=== PATIENT | female | born 2000 | race Caucasian/White ===

== ENCOUNTER → 2021-08-13 | Outpatient (CLI) | payer OTHER, SELFPAY ==
[2021-08-13 12:56] LABS: HEMATOCRIT 37.5 % (36.0-47.0); HEMOGLOBIN 12.9 g/dl (12.0-15.5); MEAN CORPUSCULAR HEMOGLOBIN 30.9 pg (27.0-33.0); MEAN CORPUSCULAR HGB CONC 34.4 g/dl (32.0-36.5); MEAN CORPUSCULAR VOLUME 89.9 fl (80.0-96.0); PLATELET COUNT, AUTOMATED 237 10^3/uL (150-450); RED BLOOD COUNT 4.17 10^6/uL (4.00-5.40); WHITE BLOOD COUNT 5.7 10^3/uL (4.0-10.0)
[2021-08-13 13:19] LABS: ALT/SGPT 27 U/L (12-78); BLOOD UREA NITROGEN 13 MG/DL (7-18); CALCIUM LEVEL 9.3 MG/DL (8.5-10.1); CARBON DIOXIDE LEVEL 26 MEQ/L (21-32); CHLORIDE LEVEL 110 MEQ/L (98-107); CREATININE FOR GFR 0.68 MG/DL (0.55-1.30); GLOMERULAR FILTRATION RATE > 60.0 (>60); GLUCOSE, FASTING 100 MG/DL (70-100); SODIUM LEVEL 140 MEQ/L (136-145)
[2021-08-13 13:20] LABS: ALBUMIN 3.9 GM/DL (3.2-5.2); BILIRUBIN,DIRECT < 0.1 MG/DL (0.0-0.2); BILIRUBIN,TOTAL 0.3 MG/DL (0.2-1.0); HCG, SERUM QUANTITATIVE 310 MIU/ML; TOTAL PROTEIN 7.2 GM/DL (6.4-8.2)
== END ==
LOC: M LAB 12:03
PROVIDERS: ATTEND Obstetrics & Gynecology
DX: O00.90 Unspecified ectopic pregnancy without intrauterine pregnancy (principal)

== ENCOUNTER → 2021-08-17 | Outpatient (CLI) | payer OTHER | LOC: M LAB 15:39 | PROVIDERS: ATTEND Obstetrics & Gynecology | DX: O02.81 Inappropriate change in quantitative human chorionic gonadotropin (hCG) in early pregnancy (principal) ==

== ENCOUNTER 2022-10-06 21:30 | Outpatient (CLI) | payer OTHER ==
[~2022-10-06] VITALS: Ht 162.6 cm; Wt 88.5 kg
[2022-10-06 21:47] VITALS: BP 138/80
[2022-10-06] MEDS ORDERED: PRENTAB9 PO (21:51)
[2022-10-06] MEDS ORDERED: HOME MED LIST COMPLETE! XX SCH (21:55)
[2022-10-07 00:18] VITALS: BP 145/80
== END 2022-10-07 00:30 | disposition home or self-care (01) ==
LOC: M LDO 21:30
PROVIDERS: ATTEND Obstetrics & Gynecology
DX: O47.1 False labor at or after 37 completed weeks of gestation (principal); Z3A.39 39 weeks gestation of pregnancy
CPT/HCPCS: 59025; G0378; G0463

== ENCOUNTER 2022-10-11 13:14 | Outpatient (CLI) | payer OTHER ==
[~2022-10-11] VITALS: Ht 175.3 cm; Wt 89.4 kg
[~2022-10-11 13:14] MED LIST: PRENTAB9 PO
[2022-10-11 13:36] VITALS: BP 170/82
[2022-10-11 13:40] VITALS: BP 155/73
[2022-10-11 13:58] VITALS: BP 124/70
[2022-10-11 15:28] VITALS: BP 124/68
[2022-10-11 16:58] VITALS: BP 115/55
[2022-10-12] MEDS ORDERED: ACET325C5 PO (19:49)
== END 2022-10-11 18:42 | disposition home or self-care (01) ==
LOC: M LDO 13:14
PROVIDERS: ATTEND Obstetrics & Gynecology
DX: O47.1 False labor at or after 37 completed weeks of gestation (principal); Z3A.39 39 weeks gestation of pregnancy; O36.8130 Decreased fetal movements, third trimester, not applicable or unspecified
CPT/HCPCS: 59025; G0463

== ENCOUNTER 2022-10-12 19:31 | Inpatient (IN) | payer OTHER ==
[2022-10-12] VITALS (18 sets, daily range): BP systolic 108–146; BP diastolic 56–87
[~2022-10-12] VITALS: Ht 162.6 cm; Wt 89.7 kg
[2022-10-12] MEDS ORDERED: ACET325C5 PO (19:49)
[2022-10-12 20:28] LABS: HEMATOCRIT 38.4 % (36.0-47.0); HEMOGLOBIN 12.6 g/dl (12.0-15.5); MEAN CORPUSCULAR HEMOGLOBIN 29.8 pg (27.0-33.0); MEAN CORPUSCULAR HGB CONC 32.8 g/dl (32.0-36.5); MEAN CORPUSCULAR VOLUME 90.8 fl (80.0-96.0); PLATELET COUNT, AUTOMATED 196 10^3/uL (150-450); RED BLOOD COUNT 4.23 10^6/uL (4.00-5.40)
[2022-10-12] MEDS ORDERED: LACTATED RINGER'S 1000 ML IV STA (20:39)
[2022-10-12] MEDS ORDERED: OXYTOCIN DRIP 30 UNITS in IV 1 EA IV PRN ×4 (20:40)
[2022-10-12] MEDS ORDERED: LIDOCAINE 1% MDV 20ML VIAL INFIL PRN (20:40)
[2022-10-12] MEDS ORDERED: CARBOPROST TROMETHAMINE 250 MCG/ML AMP IM PRN (20:40)
[2022-10-12] MEDS ORDERED: HOME MED LIST COMPLETE! XX SCH (20:40)
[2022-10-12] MEDS ORDERED: TRANEXAMIC ACID INJection 1,000 MG in NS 100 ML IV PRN (20:40)
[2022-10-12] MEDS ORDERED: METHYLERGONOVINE MALEATE 0.2 MG/ML VIAL (J2210) IM PRN (20:40)
[2022-10-12] MEDS ORDERED: LR 500 ML IV PRN (21:25)
[2022-10-12] MEDS ORDERED: NALOXONE INJ 0.4MG/1ML VIAL IV PRN (21:25)
[2022-10-12] MEDS ORDERED: ONDANSETRON 4MG 2ML VIAL IV PRN (21:25)
[2022-10-12] MEDS ORDERED: diphenhydrAMINE 50MG/ML VIAL IV PRN (21:25)
[2022-10-12] MEDS ORDERED: EPIDURAL/PCA KEYS XX PRN (21:25)
[2022-10-12] MEDS: LR 1,000 ML IV SCH (21:31)
[2022-10-12] MEDS: FENTANYL/ROPIVACAINE/NACL BAG 100 ML EPIDURAL SCH (22:00)
[2022-10-13] VITALS (32 sets, daily range): BP systolic 92–164; BP diastolic 51–86
[2022-10-13] MEDS: LR 1,000 ML IV SCH ×3 (00:38→20:40)
[2022-10-13] MEDS: ePHEDrine SULFATE 25 MG/5 ML(5MG/ML) SYRINGE IVP PRN ×3 (01:28→02:40)
[2022-10-13] MEDS ORDERED: ePHEDrine SULFATE 25 MG/5 ML(5MG/ML) SYRINGE IVP PRN (03:35)
[2022-10-13] MEDS ORDERED: LR 500 ML IV PRN (03:35)
[2022-10-13] MEDS: FENTANYL/ROPIVACAINE/NACL BAG 100 ML EPIDURAL SCH (04:56)
[2022-10-13] MEDS ORDERED: METHYLERGONOVINE MALEATE 0.2 MG TAB PO PRN (08:50)
[2022-10-13] MEDS ORDERED: DOCUSATE SODIUM 100MG CAPSULE PO PRN (08:50)
[2022-10-13] MEDS ORDERED: ACETAMINOPHEN TAB 650MG DOSE (2X325MG) PO PRN (08:50)
[2022-10-13] MEDS ORDERED: DIBUCAINE 1% OINTMENT 30GM TOP PRN (08:50)
[2022-10-13] MEDS ORDERED: RHOGAM 300 MCG (1500 IU) INJ (J2790) IM SCH (08:50)
[2022-10-13] MEDS: PRENATAL VITAMINS CHEWABLE TABLET PO SCH (09:00)
[2022-10-13] MEDS: IBUPROFEN 800 MG TAB PO PRN (17:59)
[2022-10-14] MEDS: IBUPROFEN 800 MG TAB PO PRN (03:39)
[2022-10-14 06:00] VITALS: BP 118/59
[2022-10-14] MEDS: PRENATAL VITAMINS CHEWABLE TABLET PO SCH (08:51)
[2022-10-15] MEDS ORDERED: MEASLES,MUMPS,RUBELLA VACCINE INJ (MMR-II) (90707) SC.IMMUN ONE (09:00)
== END 2022-10-14 17:15 | disposition home or self-care (01) | DRG 807 ==
LOC: M LDO 19:31 → M LDI 19:56 → M OBS 10-13 10:57
PROVIDERS: ADMIT Obstetrics & Gynecology; ATTEND Registered Nurse
PROC: 10E0XZZ Delivery of Products of Conception, External Approach (ICD-10-PCS; principal; 2022-10-13)
PROC: 0HQ9XZZ Repair Perineum Skin, External Approach (ICD-10-PCS; 2022-10-13)
PROC: 10907ZC Drainage of Amniotic Fluid, Therapeutic from Products of Conception, Via Natural or Artificial Opening (ICD-10-PCS; 2022-10-13)
DX: O48.0 Post-term pregnancy (principal); Z37.0 Single live birth; Z3A.40 40 weeks gestation of pregnancy; O69.81X0 Labor and delivery complicated by cord around neck, without compression, not applicable or unspecified; O70.0 First degree perineal laceration during delivery